=== PATIENT | female | born 1950 | race Caucasian/White ===

== ENCOUNTER → 2018-04-04 | Day surgery (SDC) | payer OTHER, MEDICARE ==
[~2018-04-04] MED LIST: BUPIVACAINE HCL 0.5 % INJ/PF 30 ML SDV ONE; LIDOCAINE 1% INJ-PF (10 MG/ML) 30 ML SDV ONE; METHYLPREDNISOLONE ACETATE INJ 40 MG/1 ML ML ONE
--- NOTE | 2018-04-04 14:49 | RADIOLOGY REPORT (SQ) ---
EXAM DESCRIPTION: INJECT/ASPIR HIP/SHLDR/KNEE; FLUORO/NEEDLE PLACEMENT COMPLETED DATE/TIME: 04/04/2018 1:26 pm REASON FOR STUDY: UNILATERAL OA RIGHT HIP (M16.11) M16.11 UNILATERAL PRIMARY OSTEOARTHRITIS, RIGHT HIP COMPARISON: None. FLUOROSCOPY TIME: 8 seconds. 1 images saved to PACS. LIMITATIONS: None. PROCEDURE: SITE OF INJECTION: Right hip. LOCALIZING CONTRAST TYPE AND DOSE: 1 mL Omnipaque. MEDICATION TYPE AND DOSE: 5 mL Sensorcaine and 80 mg Depo-Medrol. Using local anesthesia and sterile technique with fluoroscopic guidance, the needle was advanced into the joint. Iodinated contrast was injected to verify intraarticular placement. This was followed by therapeutic injection of the indicated medications. The needle was removed. There were no immediat e complications. Preprocedure pain level: 3/5. Postprocedure pain level: 0/5. IMPRESSION: THERAPEUTIC INJECTION OF THE RIGHT HIP JOINT ABOVE. COMMENT: Patient medication list reviewed: Yes- Quality ID# [id number]:Eligible professional attests to doc umenting in the medical record they obtained, updated, or reviewed the patient's current medications. . Quality ID 145: Final reports for procedures using fluoroscopy that document radiation exposure juvencio criss, or exposure time and number of fluorographic images (if radiation exposure indices are not avail able) TECHNICAL DOCUMENTATION: JOB ID: [id number] [employer]- All Rights Reserved Reading location - IP/workstation name: [email or web address]
--- NOTE | 2018-04-04 14:49 | RADIOLOGY REPORT (SQ) ---
EXAM DESCRIPTION: INJECT/ASPIR HIP/SHLDR/KNEE; FLUORO/NEEDLE PLACEMENT COMPLETED DATE/TIME: 04/04/2018 1:26 pm REASON FOR STUDY: UNILATERAL OA RIGHT HIP (M16.11) M16.11 UNILATERAL PRIMARY OSTEOARTHRITIS, RIGHT HIP COMPARISON: None. FLUOROSCOPY TIME: 8 seconds. 1 images saved to PACS. LIMITATIONS: None. PROCEDURE: SITE OF INJECTION: Right hip. LOCALIZING CONTRAST TYPE AND DOSE: 1 mL Omnipaque. MEDICATION TYPE AND DOSE: 5 mL Sensorcaine and 80 mg Depo-Medrol. Using local anesthesia and sterile technique with fluoroscopic guidance, the needle was advanced into the joint. Iodinated contrast was injected to verify intraarticular placement. This was followed by therapeutic injection of the indicated medications. The needle was removed. There were no immediat e complications. Preprocedure pain level: 3/5. Postprocedure pain level: 0/5. IMPRESSION: THERAPEUTIC INJECTION OF THE RIGHT HIP JOINT ABOVE. COMMENT: Patient medication list reviewed: Yes- Quality ID# [id number]:Eligible professional attests to doc umenting in the medical record they obtained, updated, or reviewed the patient's current medications. . Quality ID 145: Final reports for procedures using fluoroscopy that document radiation exposure juvencio criss, or exposure time and number of fluorographic images (if radiation exposure indices are not avail able) TECHNICAL DOCUMENTATION: JOB ID: [id number] [employer]- All Rights Reserved Reading location - IP/workstation name: [email or web address]
== END ==
LOC: RAD 12:35
PROVIDERS: ATTEND Orthopaedic Surgery
DX: M16.11 Unilateral primary osteoarthritis, right hip (principal)
CPT/HCPCS: 20610; 77002; J3490 ×2; J1020

== ENCOUNTER → 2018-07-08 | Day surgery (SDC) | payer OTHER, MEDICARE ==
[~2018-07-08] MED LIST changes: -LIDOCAINE 1% INJ-PF (10 MG/ML) 30 ML SDV ONE; -METHYLPREDNISOLONE ACETATE INJ 40 MG/1 ML ML ONE; +METHYLPREDNISOLONE ACETATE INJ 80 MG/1 ML VIAL ONE
--- NOTE | 2018-07-08 14:07 | RADIOLOGY REPORT (SQ) ---
EXAM DESCRIPTION: INJECT/ASPIR HIP/SHLDR/KNEE; FLUORO/NEEDLE PLACEMENT COMPLETED DATE/TIME: 07/08/2018 1:38 pm REASON FOR STUDY: Z96.649 PRESENCE OF UNSPECIFIED ARTIFICIAL HIP JOINT M16.11 UNILATERAL PRIMARY OS TEOARTHRITIS, RIGHT HIP COMPARISON: None. FLUOROSCOPY TIME: 7 seconds 1 images saved to PACS. LIMITATIONS: None. PROCEDURE: SITE OF INJECTION: Anterior right hip LOCALIZING CONTRAST TYPE AND DOSE: 1 cc Omnipaque 300. MEDICATION TYPE AND DOSE: 80 mg Depo-Medrol. 5 cc dilute bupivacaine. Using local anesthesia and sterile technique with fluoroscopic guidance, the needle was advanced into the joint. Iodinated contrast was injected to verify intraarticular placement. This was followed by therapeutic injection of the indicated medications. The needle was removed. There were no immediat e complications. Preprocedure pain level: 5/5. Postprocedure pain level: 3/5. IMPRESSION: THERAPEUTIC INJECTION OF THE RIGHT HIP JOINT ABOVE. COMMENT: Patient medication list reviewed: Yes- Quality ID# [id number]:Eligible professional attests to doc umenting in the medical record they obtained, updated, or reviewed the patient's current medications. . Quality ID 145: Final reports for procedures using fluoroscopy that document radiation exposure juvencio criss, or exposure time and number of fluorographic images (if radiation exposure indices are not avail able) TECHNICAL DOCUMENTATION: JOB ID: [id number] [employer]- All Rights Reserved Reading location - IP/workstation name: [email or web address]
== END ==
LOC: RAD 12:49
PROVIDERS: ATTEND Orthopaedic Surgery
DX: M16.11 Unilateral primary osteoarthritis, right hip (principal)
CPT/HCPCS: 20610; 77002; J3490; J1040